=== PATIENT | male | born 1950 | race Caucasian/White ===

== ENCOUNTER 2018-01-09 03:00 | Observation (INO) | payer MEDICARE, BC ==
[2017-12-03 12:22] LABS: PLATELET COUNT, AUTOMATED 221 K/uL (150-450)
--- NOTE | 2017-12-03 12:27 | EKG ---
FACILITY: [facility] [place] PATIENT NAME: SOLOMON PABLO : [id number] MR: [id number] V: [id number] EXAM DATE: ORDERING PHYSICIAN: WENDY LOGAN TECHNOLOGIST: GOLDIE Gu Reason : PRE-OP Blood Pressure : / mmHG Vent. Rate : 062 BPM Atrial Rate : 062 BPM P-R Int : 206 ms QRS Dur : 104 ms QT Int : 422 ms P-R-T Axes : 074 077 055 degrees QTc Int : 428 ms Sinus rhythm Possible left atrial enlargement No acute appearing findings Confirmed by CRUZ SCHULTZ ([id number]) on 12/04/2017 5:37:12 AM Referred By: DOREEN Confirmed By:CRUZ SCHULTZ
--- NOTE | 2017-12-03 13:16 | RADIOLOGY IMAGING REPORT ---
FACILITY: [facility] [place] PATIENT NAME: Ari Cody : 1950 MR: [id number] V: [id number] EXAM DATE: ORDERING PHYSICIAN: WENDY LOGAN TECHNOLOGIST: Location: [facility] Patient: Ari Cody : 1950 Visit/Account:[id number] Date of Sevice: 12/03/2017 CHEST PA AND LAT History: Preoperative FINDINGS: Comparison studies: None. Tubes and Lines: None. Lungs and pleura: There is pulmonary hyperinflation with flattened diaphragms. No focal consolidat ion is seen. Mediastinum: normal. Cardiac silhouette: normal . Osseous structures: Cortical anchors are seen in the right humeral head. IMPRESSION: Hyperinflation-possible emphysema. Correlate with smoking history. No acute cardiopulmonary pathology identified. Report Dictated By: Kyle Dawson MD at 12/03/2017 1:11 PM Report E-Signed By: Kyle Dawson MD at 12/03/2017 1:12 PM WSN:[id number]
[2018-01-08 13:48] LABS: INR 1.02
--- NOTE | 2018-01-08 16:46 | RADIOLOGY IMAGING REPORT ---
FACILITY: [facility] - [place] PATIENT NAME: Ari Cody : 1950 MR: [id number] V: [id number] EXAM DATE: ORDERING PHYSICIAN: WENDY LOGAN TECHNOLOGIST: [place] [facility] [place] Cody : 1950 Visit/Account:[id number] Date of Sevice: 01/08/2018 LEGS BILAT STANDING HIPS-ANKLE Indication: RIGHT TOTAL KNEE REPLACEMENT Comparison: None. Findings: Although the liver imaged is slightly short, not extending to the distal tibia, accurate measurements were able to be obtained on the PACS screen. Right leg length: 97.6 cm. This is measured from the cephalad portion of the femoral head to the tib ial distal articular surface. Right femur measurement from the superior margin of the femoral head t o the medial femoral condyle is 53.4 cm.. The right tibia measures 44.0 cm from the medial tibial pl ateau to the medial tibial plafond. Left leg measurement: 98.0 cm. The left femur measures 54.2 cm from the superior margin of the left femoral head to the medial femoral condyle. The left tibia measures 43.4 cm from the medial tibial p lateau to the medial tibial plafond. Impression: Leg length is measured above. The left leg is slightly longer than the right leg. Report Dictated By: Benigno Swanson at 01/08/2018 3:25 PM Report E-Signed By: Benigno Swanson at 01/08/2018 4:42 PM WSN:[id number]
[~2018-01-09] VITALS: Ht 190.5 cm; Wt 122.9 kg
[2018-01-09] VITALS (14 sets, daily range): BP systolic 100–169; BP diastolic 65–125; BMI 33.9
[~2018-01-09 03:00] MED LIST: ASPI-757 PO; ATEN-1 PO; BUPR-156 PO; CHOL10005 PO; CHOL100058 PO; CITA-145 PO; FOLI-68 PO; GLUC-128 PO; METO-253 PO; MULT-885 PO; NIT4 SL; PNEU0.5D3 IM; SIMV-49 PO; TRAM-420 PO
[2018-01-09] MEDS: NORMOSOL R SOLN(*) 1000 ML BAG 1,000 ML IV PRN ×2 (10:08→13:14)
[2018-01-09] MEDS ORDERED: cloNIDine EPIDUR INJ 100MCG/ML 40 MCG, ROPIVACAINE 0.5% 20 ML VIAL 25 ML, EPINEPHrine H... INJ ONE (11:35)
[2018-01-09] MEDS ORDERED: LIDOCAINE/SOD BICARB 8.4% SYR ID ONE (11:35)
[2018-01-09] MEDS ORDERED: VANCOMYCIN IVPB ONE (11:35)
[2018-01-09] MEDS ORDERED: MIDAZOLAM 2 MG/2 ML VIAL IVP PRN (11:35)
[2018-01-09] MEDS ORDERED: NS 0.9% IVPB ONE (11:35)
[2018-01-09] MEDS ORDERED: FAMOTIDINE 20 MG TAB PO ONE (11:35)
[2018-01-09] MEDS ORDERED: TRANEXAMIC AC 1000 MG/10ML SDV 1,000 MG in DEXTROSE 5% 50 ML BAG 50 ML IV ONE ×4 (11:35)
[2018-01-09] MEDS ORDERED: ALBUTEROL/IPRATROPIUM 3 ML NEB ONE ×2 (13:03→16:44)
[2018-01-09] MEDS ORDERED: MORPHINE PF 5 MG/10 ML AMP ONE (13:05)
[2018-01-09] MEDS ORDERED: NEOSTIG METHYLSUL 10MG/10ML VL ONE (13:37)
[2018-01-09] MEDS ORDERED: ONDANSETRON 4 MG/2 ML VIAL ONE (13:37)
[2018-01-09] MEDS ORDERED: LIDOCAINE MPF 1% 5 ML VIAL ONE (13:37)
[2018-01-09] MEDS ORDERED: PROPOFOL EMUL(*) 10MG/ML 20 ML 40 ML ONE (13:37)
[2018-01-09] MEDS ORDERED: DEXAMETHASONE SOD PHOS 10MG/ML ONE (13:37)
[2018-01-09] MEDS ORDERED: NS 0.9% 20 ML SDV 20 ML ONE (13:38)
[2018-01-09] MEDS ORDERED: NALOXONE HCL 0.4 MG/ML VIAL IVP PRN (16:00)
[2018-01-09] MEDS ORDERED: MORPHINE SULFATE 30 MG PCA IV PRN (16:00)
[2018-01-09] MEDS ORDERED: ONDANSETRON 4 MG/2 ML VIAL IVP PRN (16:00)
[2018-01-09] MEDS ORDERED: FLUSH 10 ML SYR IVP PRN (16:00)
[2018-01-09] MEDS ORDERED: diphenhydrAMINE 25 MG CAP PO PRN ×2 (16:00→16:25)
[2018-01-09] MEDS ORDERED: KCL/D5LR 20 MEQ/1000 ML PREMIX 1,000 ML IV PRN (16:00)
[2018-01-09] MEDS ORDERED: ACETAMINOPHEN 500 MG TAB PO PRN (16:00)
[2018-01-09] MEDS ORDERED: MAGNESIUM CITRATE 300 ML BTL PO PRN (16:00)
[2018-01-09] MEDS ORDERED: PROMETHAZINE 25 MG/ML 1 ML AMP IVP PRN (16:00)
[2018-01-09] MEDS ORDERED: ALBUTEROL/IPRATROPIUM 3 ML NEB NEB ONE (16:40)
--- NOTE | 2018-01-09 17:20 | RADIOLOGY IMAGING REPORT ---
FACILITY: [facility] - [place] PATIENT NAME: Ari Cody : 1950 MR: [id number] V: [id number] EXAM DATE: ORDERING PHYSICIAN: WENDY LOGAN TECHNOLOGIST: Location: [facility] Patient: Ari Cody : 1950 Visit/Account:[id number] Date of Sevice: 01/09/2018 Technique: KNEE LIMITED RIGHT HISTORY: S/P TOTAL KNEE ARTHROPLSTY RIGHT Comparison studies: None FINDINGS: There is no acute fracture. Present is a right knee arthroplasty. There is gross anatomic a lignment. Expected adjacent postoperative changes are noted. There is a knee joint effusion. IMPRESSION: 1. Right knee arthroplasty without evidence of acute hardware complication. Report Dictated By: Servando Fernandez DO at 01/09/2018 5:13 PM Report E-Signed By: Servando Fernandez DO at 01/09/2018 5:16 PM WSN:[id number]
[2018-01-09] MEDS ORDERED: INSULIN HUM LISPRO 100 UN/ML 3 ML VIAL SUBQ PRN (17:55)
--- NOTE | 2018-01-09 18:00 | Hospitalist Progress Note ---
Subjective Progress Notes Subjective No cp/sob. No concerns from the patient or staff. 100cc of EBL. 1600cc of crystalloid, dexamethasone, phenylephrine and TXA given intra-op. Physical Exam Vital Signs Date Time Temp Pulse Resp B/P (MAP) Pulse Ox O2 Delivery O2 Flow Rate FiO2 01/09/18 17:35 91 High-Flow Nasal Cannula 8.0 01/09/18 17:24 97.5 82 17 131/86 (101) Intake and Output 01/10/18 07:00 Intake Total 2050 ml Output Total 100 ml Balance 1950 ml Intake IV Total 2050 ml Output Estimated Blood Loss 100 ml General Appearance: Alert, Awake, No Acute Distress Cardiovascular: Regular Rate and Rhythm Respiratory: Clear to Auscultation Extremities: No Edema Result Diagram: 01/09/18 8764 Assessment and Plan Problems: (1) Status post knee replacement Status: Acute Assessment & Plan: No CV/pulmonary issues. No history of DVT/PE, so will use ASA 325mg a day for 30 days after surgery for prophylaxis. (2) CAD (coronary artery disease) Status: Chronic Assessment & Plan: He had an ND in 1997. Continue metoprolol, simvastatin, and ASA. (3) Fasting hyperglycemia Status: Chronic Assessment & Plan: HgA1c was 6.1 in November. Will follow AC and HS glucose and cover with SSI level 1 while in the hospital. (4) Hx of smoking Status: Chronic Assessment & Plan: He likely has some COPD. Lungs are clear. He was offered a nicotine patch or Nicotrol inhaler, but he wants to wait to see how he feels. (5) Dysthymic disorder Status: Chronic Assessment & Plan: Continue citalopram. Exam Sepsis Risk: No Definite Risk Problem Qualifiers (1) Status post knee replacement: Laterality: right Qualified Codes: Z96.651 - Presence of right artificial knee joint YARON RAYMOND MD Jan 09, 2018 18:00
--- NOTE | 2018-01-09 19:55 | OPERATIVE REPORT 1 ---
EVENT DATE: January 09, 2018 SURGEON: Alejo Gotti MD ANESTHESIOLOGIST: Kevin New MD ANESTHESIA: General plus Duramorph spinal. CHANNEL MARKETING COORDINATOR: Anil Patricio PA-C PREOPERATIVE DIAGNOSIS Right knee degenerative joint disease (valgus knee). POSTOPERATIVE DIAGNOSIS Right knee degenerative joint disease (valgus knee). PROCEDURE PERFORMED Right total knee arthroplasty. ESTIMATED BLOOD LOSS 100 INTRAVENOUS FLUIDS Crystalloid 1600, no colloid. TOURNIQUET TIME 83 SPECIMENS No specimens. COMPLICATIONS No complications. IMPLANTS USED DePuy AthleteTrax 9 PS femur, 9 fixed-bearing tibia, 9 x 5 mm posterior stabilized, fixed-bearing insert, and a 38 anatomic patella, all cemented. SUMMARY OF PROCEDURE The patient was brought into the operating room and placed on the OR table in the supine position. He was then switched over to the upright position, and he was given a Duramorph spinal. He was then given a general anesthetic. The right lower extremity was prepped and draped in the usual sterile fashion. The limb was exsanguinated, and the tourniquet was inflated to 275 mmHg. A longitudinal utilitarian anterior incision was made, deepened through skin and subcutaneous tissue, followed by a medial parapatellar approach with no evidence of irregular synovial fluid. The fat pad was removed. We excised the ACL and the patellofemoral ligament and then proceeded to expose the knee. There were multiple osteophytes throughout the notch and along the margins of the knee which were removed. He had a rather unusually shaped distal femur where there was virtually no anterior extension of the condyles. They were almost flush with the anterior aspect of the femur, and it was also rather tall from the condyles to this point compared to its width. Intramedullary guidance was obtained. We cut based on long plate films at 6 degrees, taking 9 mm off the end. Because we knew that we would probably be fairly tight, I actually removed some of the intact cartilage on the medial side before the seating the distal cutter set point, and that way we ensured that we took a full 9 mm off the bone. We then sized it at a 9, and the chamfer cuts were made. The anterior chamfer, as expected, was from the very beginning confluent with the anterior aspect of the femur, so it really just continued to ride along this area, but it did not appear to notch. It just did not cut the usual grand piano shaped defect in the top of the femur. We used the sizing guide, and it looked like it was a symmetric cut. We then used the box inspector to remove the tissue necessary for the posterior stabilized device and did a trial. It fit nicely, so we drilled the lug holes and then went on to the tibia. Intramedullary guidance was obtained at the tibia. We set rotation and then assessed where we should make our cut. Two mm below the deficient lateral side created something very similar on the medial side, and it did seem like the lateral side was tighter, so I did release the popliteus and checked again. It did seem to be reasonably symmetric. We went ahead and prepared the tibia 4 mm below the lateral side, which put us about 4 mm below the medial side as well. We pinned the tibial component in the lower hole so we could still go further if we needed to. Ultimately, we did prep the tibia with a 9 at that position and checked extension which seemed to be adequate with good varus and valgus stability at zero, 20, and at 90 degrees. The patella tracked reasonably well. We set the patella, released some of the tissue around it, measuring it at approximately 24, so we cut the standard 9.5 off and proceeded to place a 38. This was drilled, and then we did some additional drill holes because of eburnated bone. With all trials in place, it fit nicely and tracked well. These were removed. The bone was irrigated. Plugs were placed at the femur and the tibia, and then we mixed cement. Cement was injected at the tibial component as well as the tibial surface, and we injected down into the tibial central defect as well. This was impacted into position. About this time, it became evident that the cement seemed to be polymerizing rather rapidly. It was actually difficult to get it out of the gun for the femur, but we did get it down, locked and loaded the femur against the tibia, and then removed excess bone. I elected to abort on the patella because it looked like the cement was polymerizing atypically quickly. We mixed another batch and then completed the patella, at which point the tourniquet was deflated at 83 minutes. The wound was irrigated as it had been throughout the case. Additional tranexamic acid was given at that time. Bleeding was controlled with unipolar cautery. We did select a 5 mm insert. I got the impression that with the very viscous cement, he might have been just a little bit tighter than before, but we could still get him to full extension. We then irrigated one final time before closing the fascia with #1 Vicryl and then closing the subcutaneous tissue with 3-0 Vicryl, and 4-0 Monocryl completed the closure of the skin. He was given a dry, sterile dressing. He was awakened and transferred to the recovery area in stable condition. IVANA
[2018-01-09] MEDS ORDERED: PHENYLEPHRINE 10 MG/1 ML VIAL ONE (20:35)
[2018-01-09] MEDS: SIMVASTATIN 20 MG TAB PO SCH (21:23)
[2018-01-09] MEDS: METOPROLOL TART 50 MG TAB PO SCH (21:23)
[2018-01-09] MEDS: NICOTINE 21 MG/24 HR PATCH TD SCH (22:36)
[2018-01-10 02:57] VITALS: BP 126/72
[2018-01-10 07:05] LABS: PLATELET COUNT, AUTOMATED 170 K/uL (150-450)
--- NOTE | 2018-01-10 07:49 | Hospitalist Progress Note ---
Subjective Progress Notes Subjective He required up to 10 liters of O2 overnight. He reports that he does snore and have episodes of stopping breathing prior to surgery. No cp/sob. Physical Exam Vital Signs Date Time Temp Pulse Resp B/P (MAP) Pulse Ox O2 Delivery O2 Flow Rate FiO2 01/10/18 02:57 97.5 67 16 126/72 (90) 96 Nasal Cannula 10.0 General Appearance: Alert, Awake, No Acute Distress Respiratory: Clear to Auscultation Result Diagram: 01/10/18 0607 Assessment and Plan Problems: (1) Status post knee replacement Status: Acute Assessment & Plan: No CV. No history of DVT/PE, so will use ASA 325mg a day for 30 days after surgery for prophylaxis. (2) Hypoxia Status: Acute Assessment & Plan: He required up to 10 liters of O2 overnight, but now getting titrated down. Lungs are clear and no worrisome symptoms for PE or pneumonia. Likely, he has ROSI per his own admission. Will follow closely. (3) CAD (coronary artery disease) Status: Chronic Assessment & Plan: He had an DC in 1997. Continue metoprolol, simvastatin, and ASA. (4) Fasting hyperglycemia Status: Chronic Assessment & Plan: HgA1c was 6.1 in November. Will follow AC and HS glucose and cover with SSI level 1 while in the hospital. (5) Hx of smoking Onset Date: 10/10/2014 Status: Chronic Assessment & Plan: He likely has some COPD. Lungs are clear. Nicotine patch while in the hospital. (6) Dysthymic disorder Status: Chronic Assessment & Plan: Continue citalopram. Exam Sepsis Risk: No Definite Risk Problem Qualifiers (1) Status post knee replacement: Laterality: right Qualified Codes: Z96.651 - Presence of right artificial knee joint YARON RAYMOND MD Jan 10, 2018 07:49
[2018-01-10 08:34] VITALS: BP 111/68
[2018-01-10] MEDS: METOPROLOL TART 50 MG TAB PO SCH ×2 (09:00→20:35)
[2018-01-10] MEDS: ASPIRIN 325 MG TAB PO SCH (09:02)
[2018-01-10] MEDS: CITALOPRAM HYDROBROM 20 MG TAB PO SCH (09:03)
[2018-01-10] MEDS: NICOTINE 21 MG/24 HR PATCH TD SCH (09:06)
[2018-01-10 11:46] VITALS: BP 109/63
[2018-01-10 15:10] VITALS: BP 116/63
[2018-01-10] MEDS: BENZOCAINE/MENTHOL 1 EACH LOZG PO PRN ×2 (16:26→18:49)
[2018-01-10 20:00] VITALS: BP 139/93
[2018-01-10] MEDS: SIMVASTATIN 20 MG TAB PO SCH (20:35)
[2018-01-10 22:46] VITALS: BP 131/69
[2018-01-11] MEDS: BENZOCAINE/MENTHOL 1 EACH LOZG PO PRN (02:03)
[2018-01-11 03:11] VITALS: BP 138/68
[2018-01-11 06:34] LABS: PLATELET COUNT, AUTOMATED 151 K/uL (150-450)
--- NOTE | 2018-01-11 06:42 | Hospitalist Progress Note ---
Subjective Progress Notes Subjective He denies any complaints this AM. He reports sleeping "much better". Physical Exam Vital Signs Date Time Temp Pulse Resp B/P (MAP) Pulse Ox O2 Delivery O2 Flow Rate FiO2 01/11/18 03:11 98.9 69 16 138/68 (91) 92 Nasal Cannula 4.0 General Appearance: Alert, Awake Cardiovascular: Regular Rate and Rhythm Respiratory: Other (diminished breath sounds bilaterally but equal/no rales or wheezes) Result Diagram: 01/11/18 0552 Item Value Date Time Whole Blood Glucose 100 mg/DL 01/10/18 205 Whole Blood Glucose 91 mg/DL 01/10/18 1701 Whole Blood Glucose 112 mg/DL H 01/10/18 1142 Whole Blood Glucose 112 mg/DL H 01/10/18 0743 Assessment and Plan Problems: (1) Status post knee replacement Status: Acute Assessment & Plan: He will be on ASA 325mg a day for 30 days after surgery for prophylaxis. (2) Hypoxia Status: Acute Assessment & Plan: He is requirement appears to be 3-4L continuous. Lungs are clear and no worrisome symptoms for PE or pneumonia. Likely, he has COPD and possible ROSI per his own admission. He will most likely need O2 at time of discharge and will need to follow up closely with Dr. Batsheva Fung. (3) CAD (coronary artery disease) Status: Chronic Assessment & Plan: He had an [place] in 1997. Continue metoprolol, simvastatin, and ASA. (4) Fasting hyperglycemia Status: Chronic Assessment & Plan: HgA1c was 6.1 in November. Glucose has been modestly elevated. He is on SSI while here. (5) Hx of smoking Onset Date: 10/10/2014 Status: Chronic Assessment & Plan: He likely has some COPD. Lungs are fairly clear. Nicotine patch while in the hospital. He voiced understanding of need to quit completely. (6) Dysthymic disorder Status: Chronic Assessment & Plan: Continue citalopram. Exam Sepsis Risk: No Definite Risk Problem Qualifiers (1) Status post knee replacement: Laterality: right Qualified Codes: Z96.651 - Presence of right artificial knee joint CRUZ SCHULTZ MD Jan 11, 2018 06:42
[2018-01-11 07:35] VITALS: BP 142/65
[2018-01-11] MEDS ORDERED: OXYC-865 PO (07:40)
[2018-01-11] MEDS: ASPIRIN 325 MG TAB PO SCH (09:43)
[2018-01-11] MEDS: NICOTINE 21 MG/24 HR PATCH TD SCH (09:43)
[2018-01-11] MEDS: METOPROLOL TART 50 MG TAB PO SCH ×2 (09:43→21:13)
[2018-01-11] MEDS: CITALOPRAM HYDROBROM 20 MG TAB PO SCH (09:43)
[2018-01-11 11:22] VITALS: BP 121/75
[2018-01-11 11:35] VITALS: Ht 190.5 cm; Wt 122.9 kg
[2018-01-11 15:29] VITALS: BP 148/75
[2018-01-11] MEDS ORDERED: BISACODYL 10 MG SUPP PR PRN (17:35)
[2018-01-11] MEDS ORDERED: MAGNESIUM HYDROXIDE* 30ML UDCP PO PRN (17:35)
[2018-01-11 19:27] VITALS: BP 150/85
[2018-01-11] MEDS: SIMVASTATIN 20 MG TAB PO SCH (21:13)
[2018-01-11] MEDS: DOCUSATE SODIUM 100 MG CAP PO SCH (21:13)
[2018-01-11 23:57] VITALS: BP 132/77
[2018-01-12 02:58] VITALS: BP 156/79
[2018-01-12 05:50] LABS: PLATELET COUNT, AUTOMATED 140 K/uL (150-450)
--- NOTE | 2018-01-12 08:26 | Hospitalist Progress Note ---
Subjective Progress Notes Subjective He had no acute events overnight. He states he is ready to go home. Patient Complains of: Cardiovascular: No: Chest Pain Respiratory: No: Shortness of Breath Physical Exam Vital Signs Date Time Temp Pulse Resp B/P (MAP) Pulse Ox O2 Delivery O2 Flow Rate FiO2 01/12/18 02:58 98.5 72 20 156/79 (104) 94 Nasal Cannula 4.0 General Appearance: Alert, Awake, No Acute Distress, Afebrile Neuro: No Gross deficits Cardiovascular: Regular Rate and Rhythm Respiratory: No Respiratory Distress, Clear to Auscultation Psych: Alert & Oriented X3, Appropriate Mood & Affect Result Diagram: 01/12/18 0527 01/11/18 0552 Assessment and Plan Problems: (1) Status post knee replacement Status: Acute Assessment & Plan: He will be on ASA 325mg a day for 30 days after surgery for prophylaxis. (2) Hypoxia Status: Acute Assessment & Plan: He is requirement appears to be 3-4L continuous. Lungs are clear and no worrisome symptoms for PE or pneumonia. Likely, he has COPD and possible ROSI per his own admission. He will need O2 at discharge and will need to follow up closely with Dr. Batsheva Fung. (3) CAD (coronary artery disease) Status: Chronic Assessment & Plan: He had an [place] in 1997. Continue metoprolol, simvastatin, and ASA. (4) Fasting hyperglycemia Status: Chronic Assessment & Plan: HgA1c was 6.1 in November. (5) Hx of smoking Onset Date: 10/10/2014 Status: Chronic Assessment & Plan: He likely has some COPD. Lungs are fairly clear. Nicotine patch while in the hospital. He voiced understanding of need to quit completely. (6) Dysthymic disorder Status: Chronic Assessment & Plan: Continue citalopram. Exam Sepsis Risk: No Definite Risk Problem Qualifiers (1) Status post knee replacement: Laterality: right Qualified Codes: Z96.651 - Presence of right artificial knee joint FACUNDO HAYES MINE SAFETY DIRECTOR Jan 12, 2018 08:26
[2018-01-12] MEDS ORDERED: OXYC-865 PO (08:27)
[2018-01-12 09:00] VITALS: BP 128/76
[2018-01-12] MEDS ORDERED: POLYETHYLENE GLYCOL 17 GM PKT PO SCH (09:00)
[2018-01-12] MEDS: ASPIRIN 325 MG TAB PO SCH (09:10)
[2018-01-12] MEDS: DOCUSATE SODIUM 100 MG CAP PO SCH (09:10)
[2018-01-12] MEDS: METOPROLOL TART 50 MG TAB PO SCH (09:10)
[2018-01-12] MEDS: CITALOPRAM HYDROBROM 20 MG TAB PO SCH (09:10)
[2018-01-12] MEDS: NICOTINE 21 MG/24 HR PATCH TD SCH (09:11)
[2018-01-12 11:30] VITALS: BP 109/66
--- NOTE | 2018-01-23 16:01 | DISCHARGE SUMMARY ---
PRINCIPAL DIAGNOSIS ON ADMISSION Right knee degenerative joint disease. PRINCIPAL DIAGNOSIS ON DISCHARGE Right knee degenerative joint disease, status post right total knee arthroplasty. HISTORY OF PRESENT ILLNESS For details of the history and physical please see the medical record. HOSPITAL COURSE Mr. Ari Nguyen was admitted through the preoperative holding area on January 09, 2018. He underwent standard right total knee arthroplasty without complication. He was transferred to the recovery area where x-rays were obtained showing adequate position with no fracture. H and H in recovery were 17.2 and 50.4. On operative day number one he was afebrile with stable vital signs. He had minimal discomfort. The H and H had dropped down to 14.9 and 43.7. He did require substantial increases in his oxygen demand up to 10L at one point during the night, but that got quite a bit better. After the block wore off he was down to 5L and he was walking quite well. He had quite a bit of nausea and vomiting the first night, but that went away by morning. He had no calf pain and he was neurovascularly intact with a stable dressing. On postoperative day number two the pain remained well controlled with pain only discovered on max flexion. He was afebrile with stable vital signs. H and H were 14.4 and 41.5. He had not yet cleared Physical Therapy, but was coming very close. The dressing was changed. His wound was benign and there was no calf pain. After discussing the situation with the medical physicians as well as his physical therapist, a decision was made to go home on the following morning after working one more time with Physical Therapy. Final discharge was on January 12, 2018. CONDITION ON DISCHARGE Good. DIET ON DISCHARGE Regular. DISPOSITION Discharged to home with outpatient physical therapy planned. EVAND
== END 2018-01-12 13:45 | disposition home health service (06) ==
LOC: OR 03:00 → MED 17:15 → INTOOBSV 17:15
PROVIDERS: ADMIT Orthopaedic Surgery Hand Surgery; ATTEND Orthopaedic Surgery Hand Surgery
DX: M17.11 Unilateral primary osteoarthritis, right knee (principal); I25.810 Atherosclerosis of coronary artery bypass graft(s) without angina pectoris; R73.9 Hyperglycemia, unspecified; Z87.891 Personal history of nicotine dependence; F34.1 Dysthymic disorder
CPT/HCPCS: 27447; 36415; 36416; 36600; 71046; 73560; 77073; 81001; 82803; 82948; 83036; 85014; 85018; 85025; 85610; 86850; 86900; 86901; 93005; 94640; 94667; 97116; 97161; 97530; A9270; C1713; C1776; G0378; J0171; J0735; J1100; J1885; J2001; J2250; J2270; J2370; J2405; J2550; J2704; J2795; J3370; J3480; J7050; J7060; J7620; Q0163; 82040; 82247; 82310; 82374; 82435; 82565; 82947; 84075; 84132; 84155; 84295; 84450; 84460; 84520; J2710

== ENCOUNTER → 2018-12-23 | Outpatient (CLI) | payer MEDICARE, BC ==
[2018-01-11 11:35] VITALS: BMI 33.9
[~2018-12-23] MED LIST changes: +BUPR-126 PO; +OXYC-865 PO; +PNEI IJ
[2018-12-23 13:56] LABS: PLATELET COUNT, AUTOMATED 233 K/uL (150-450)
== END ==
LOC: LAB 13:17
PROVIDERS: ATTEND Emergency Medicine
DX: J44.9 Chronic obstructive pulmonary disease, unspecified (principal); I25.10 Atherosclerotic heart disease of native coronary artery without angina pectoris; I10 Essential (primary) hypertension; M79.10 Myalgia, unspecified site; Z12.5 Encounter for screening for malignant neoplasm of prostate
CPT/HCPCS: 36415; 82306; 82550; 85025; G0103; 84153

== ENCOUNTER → 2018-12-28 | Outpatient (CLI) | payer MEDICARE, BC ==
[2018-01-11 11:35] VITALS: BMI 33.9
--- NOTE | 2018-12-28 14:16 | RADIOLOGY IMAGING REPORT ---
FACILITY: [facility] - [place] PATIENT NAME: Ari Cody : 1950 MR: [id number] V: [id number] EXAM DATE: ORDERING PHYSICIAN: PAUL KWAN TECHNOLOGIST: Location: [facility] [place] Patient: Ari Cody : 1950 Visit/Account:[id number] Date of Sevice: 12/28/2018 EXAMINATION: Doppler ultrasound carotid HISTORY: Carotid artery plaque. COMPARISON: Carotid ultrasound from 10/12/2014. TECHNIQUE: Real-time grayscale, color flow and Doppler sonography of the cervical carotid and vertebr al arteries is performed. Stenosis % is determined from velocity criteria extrapolated from diameter data as defined by the Soc iety of Radiologists in Ultrasound Consensus Conference Radiology 2003; 229;340-346. FINDINGS: Plaque: Calcified plaque of both carotid bulbs. Waveforms: Normal. Vertebral arteries: Antegrade flow in both vertebral arteries. Peak systolic velocities are listed below in centimeters/second: Right: CCA proximal: 74 CCA mid: 78 CCA distal: 54 Bulb: 45 ICA proximal: 54 ICA mid: 58 ICA distal: 61 ECA: 55 Vertebral: 42 ICA/CCA ratio: 0.8 Left: CCA proximal: 97 CCA mid: 85 CCA distal: 76 Bulb: 50 ICA proximal: 45 ICA mid: 69 ICA distal: 57 ECA: 90 Vertebral: 32 ICA/CCA ratio: 0.8 IMPRESSION: Mild atherosclerotic plaque of both carotid bulbs without elevated velocities is similar to prior exa m, and is compatible with stenosis of less than 50% of both internal carotid arteries. Report Dictated By: Ilene Ponce MD at 12/28/2018 2:10 PM Report E-Signed By: Ilene Ponce MD at 12/28/2018 2:12 PM WSN:[email or web address]
== END ==
LOC: US 00:51
PROVIDERS: ATTEND Emergency Medicine
DX: I65.23 Occlusion and stenosis of bilateral carotid arteries (principal)
CPT/HCPCS: 93880

== ENCOUNTER → 2018-12-30 | Outpatient (CLI) | payer MEDICARE, BC ==
[2018-01-11 11:35] VITALS: BMI 33.9
== END ==
LOC: RESP 01:06
PROVIDERS: ATTEND Emergency Medicine
DX: J98.4 Other disorders of lung (principal)
CPT/HCPCS: 94060; 94726; 94729

== ENCOUNTER → 2019-02-16 | Outpatient (CLI) | payer MEDICARE, BC ==
[2018-01-11 11:35] VITALS: BMI 33.9
[~2019-02-16] MED LIST changes: +ATOR40TA69 PO; +BUDRES25 INH; +FLUT1AER INH; +FORM20VI IH; +TIO18R INH; +UMEC1DIS INH
== END ==
LOC: RESP 15:48
PROVIDERS: ATTEND Surgery
DX: J44.9 Chronic obstructive pulmonary disease, unspecified (principal); I25.10 Atherosclerotic heart disease of native coronary artery without angina pectoris
CPT/HCPCS: 93005

== ENCOUNTER 2019-03-24 00:27 | Day surgery (SDC) | payer MEDICARE, BC ==
[2018-01-11 11:35] VITALS: Ht 191.8 cm; Wt 121.6 kg
--- NOTE | 2019-03-19 15:37 | NUR ---
PT. STATES THAT HE DOES NOT HAVE ANYONE TO STAY WITH HIM AFTER THE PROCEDURE AND WAS WONDERING ABOUT HIS OPTIONS. I SPOKE TO DR. TOWNSEND ABOUT PT. HAVING COLONOSCOPY WITHOUT ANESTHESIA AND DR. TOWNSEND STATED THAT HE WOULD BE WILLING TO ATTEMPT WITH THE UNDERSTANDING THAT IF THE PT. WAS NOT TOLERATING PROCEDURE HE WOULD STOP AND HAVE TO RESCHEDULE THE PROCEDURE. DR. HERNÁNDEZ STATED THAT LONG THE PT. HAD SOMEONE TO COME PICK HIM UP AND DRIVE HIM HOME HE COULD HAVE THE ANESTHESIA. I ALSO TALKED TO DR. HERNÁNDEZ ABOUT PT. ASA REGIME AND HE SAID TO KEEP TAKING HIS ASA AT 325 MG/DAY. I ATTEMPTED TO CALL THE PT. BACK AND LET HIM KNOW ABOUT THE ABOVE CONVERSATIONS BUT THERE WAS NO ANSWER. I LEFT THE PT. A VOICE MAIL ASKING HIM TO CALL ME BACK.
[~2019-03-24] VITALS: Ht 191.8 cm; Wt 121.6 kg
[2019-03-24 09:35] VITALS: BP 144/92
[2019-03-24] MEDS ORDERED: PROPOFOL EMUL(*) 10MG/ML 20 ML 60 ML ONE (09:54)
[2019-03-24] MEDS ORDERED: LIDOCAINE MPF 1% 5 ML VIAL ONE (09:54)
[2019-03-24] MEDS ORDERED: LIDOCAINE/SOD BICARB 8.4% SYR ID ONE (10:10)
[2019-03-24] MEDS ORDERED: NORMOSOL R SOLN(*) 1000 ML BAG 1,000 ML IV PRN (10:10)
[2019-03-24] MEDS ORDERED: PROPOFOL EMUL(*) 10MG/ML 20 ML 20 ML ONE ×2 (11:34→12:02)
[2019-03-24 12:09] VITALS: BP 113/72
--- NOTE | 2019-03-24 12:17 | NUR ---
sbar to dale rn
--- NOTE | 2019-03-24 12:20 | Short(Outpt) Discharge Summary ---
Discharge Summary Reason for Hosp/Final Diag: (1) Colon cancer screening Status: Chronic Hospital Course & Plan: Colonoscopy with polypectomy x3 completed without problems. Departure Discharge to: Home, Self Care Discharge Instructions Home Meds Active Scripts Tiotropium [place] (SPIRIVA) 18 Mcg/Cap Inh, 2 PUFF INH DAILY, #1 INH 0 Refills Prov:PAUL KWAN MD 03/22/19 Fluticasone/Vilanterol 100/25 Mcg/Inh (BREO ELLIPTA 100/25 MCG) 1 Each Aer.pow.ba, 1 PUFF INH QDAY, #3 INH 3 Refills Prov:PAUL KWAN MD 02/25/19 Atorvastatin Calcium (ATORVASTATIN CALCIUM) 40 Mg Tablet, 1 TAB PO QDAY, #90 TAB 3 Refills Prov:PAUL KWAN MD 02/11/19 Citalopram Hydrobromide (CITALOPRAM HBR) 20 Mg Tablet, 1 TAB PO QDAY, #90 TAB 1 Refill Prov:PAUL KWAN MD 02/11/19 Metoprolol Tartrate (METOPROLOL TARTRATE) 50 Mg Tab, 1 TAB PO BID, #180 TAB 3 Refills Prov:LUCINA ARROYO MD 04/22/18 Nitroglycerin (NITROSTAT) 0.4 Mg Subl, 0.4 MG SL Q5MIN PRN for chest pain, #25 TAB 1 Refill Maximum 3 doses within 15 minutes. Prov:LUCINA ARROYO MD 04/29/17 Reported Medications Folic Acid (FOLIC ACID) 1 Mg Tablet, 2 TAB PO QDAY, TAB 03/19/19 Cholecalciferol (Vitamin D3) (VITAMIN D) 1,000 Unit Capsule, 1 CAP PO QDAY, CAPSULE 02/09/15 Multivitamin (DAILY VITAMIN) 1 Each Tablet, 1 TAB PO QDAY 07/29/14 Aspirin (ASPIRIN) 325 Mg Tablet, 1 TAB PO QDAY, TAB 07/29/14 Discontinued Scripts Folic Acid (FOLIC ACID) 1 Mg Tablet, 1 TAB PO BID, #180 TAB 3 Refills Prov:LUCINA ARROYO MD 10/14/18 Diet: Regular Activity: As Tolerated Special Instructions: Your colonoscopy was completed without problems. I removed 3 small polyps from your colon and they were sent to pathology. My office will call you in the next week or two to let you know what the polyps are and when your next colonoscopy should be (either 5 or 10 years) depending on pathology results. BETTY TOWNSEND MD Mar 24, 2019 12:20
[2019-03-24 12:37] VITALS: BP 125/74
[2019-03-24 13:00] VITALS: BP 120/77
[2019-03-24 13:15] VITALS: BP 130/72
[2019-03-24 13:18] VITALS: BP 113/77
--- NOTE | 2019-03-24 13:49 | NUR ---
1240 SBAR FROM Terrence MENA RN, ICE WATER PROVIDED TO PT, ROLLED OVER FROM PRONE TO SUPINE/SF, VSS, DOWN TO ROOM AIR, FLUIDS RUNNING WIDE OPEN, GLASSES GIVEN TO PT TO WEAR AGAIN 1310 DR. TOWNSEND AT BEDSIDE TO DISCUSS FINDINGS 1315 SPOKE WITH PT'S FRIEND FLACO, WILL WAIT IN WR, ORTHOSTATICS DONE, STABLE, DENIES DIZZINESS, REASSESSED, UNREMARKABLE FROM PRE-OP ASSESSMENT, D/C IV FROM TUBING, ALLOWED TO DRESS 1320 PT HAS PLACED DENTURES IN MOUTH, D/C INSTRUCTIONS COVERED, IV OUT, PRESSURE DRESSING APPLIED, ALL QUESTIONS ANSWERED 1330 D/C INSTRUCTIONS COVERED WITH FRIEND FLACO IN WR, OUT TO CAR ON . SIDE, PT HAS UNSTEADY GAIT D/T KNEE PAIN, DENIES FEELING LIGHTHEADED OR UNUSUALLY OFF BALANCE. PLACED IN CAR OUTSIDE GRAND ENTRANCE, ALL BELONGINGS WITH PT.
== END 2019-03-24 13:40 | disposition home health service (06) ==
LOC: OR 00:27
PROVIDERS: ATTEND Surgery
DX: Z12.11 Encounter for screening for malignant neoplasm of colon (principal); D12.4 Benign neoplasm of descending colon; K63.5 Polyp of colon
CPT/HCPCS: 00811; 45385; 88305; J2001; J2704

== ENCOUNTER → 2019-04-01 | Outpatient (CLI) | payer MEDICARE, BC ==
[2018-01-11 11:35] VITALS: BMI 33.9
[2019-04-01 13:07] LABS: PLATELET COUNT, AUTOMATED 206 K/uL (150-450)
== END ==
LOC: LAB 12:43
PROVIDERS: ATTEND Emergency Medicine
DX: D75.1 Secondary polycythemia (principal); R20.8 Other disturbances of skin sensation
CPT/HCPCS: 36415; 81270; 82607; 85025